=== PATIENT | female | born 1945 | race Caucasian/White ===

== ENCOUNTER 2025-02-17 13:42 | Outpatient (REF) | payer MEDICARE, SELFPAY ==
--- NOTE | ~2025-02-17 | XR_ITS ---
EXAMINATION: XR THORACIC SPINE CLINICAL INFORMATION: M54.6 - Pain in thoracic spine COMPARISON: None available. TECHNIQUE: 3 views of the thoracic spine were obtained. FINDINGS: S-shaped curvature of the thoracic spine. Multilevel marginal osteophyte formation and endplate sclerosis decreased intervertebral disc height, as indicated at T9-T10 and T8-9 levels. There is an electrode leads entering the the posterior central spinal canal probably at T10-11 level and ending at inferior endplate of T6.. No acute cortical disruption or gross malalignment. XR/XR thoracic spine 3V IMPRESSION: Scoliosis and multilevel spondylosis. Intraspinal canal neurostimulator device probably entering at T10-11 and ending inferior endplate of T6. Electronically signed by: Lowell Case MD 02/17/2025 03:18 PM EDT
--- NOTE | ~2025-02-17 | XR_ITS ---
EXAMINATION: XR CERVICAL SPINE CLINICAL INFORMATION: M47.812 - Spondylosis without myelopathy or radiculopathy, cervical region COMPARISON: None available. TECHNIQUE: 6 views of the cervical spine, inclusive of flexion and extension views, were obtained. FINDINGS: Craniocervical junction is intact. Marginal osteophyte formation and endplate sclerosis decreased intervertebral disc height at C5-6 and C6-7 levels and to a lesser extent C7-T1. Grade 1 anterolisthesis C3-4 in neutral position which reduces in extension position. No acute cortical disruption. No lytic or blastic lesions. XR/XR cervical spine w flex/ext IMPRESSION: Multilevel spondylosis C4 C7. Grade 1 anterolisthesis C3-4 with instability. Electronically signed by: Lowell Case MD 02/17/2025 03:20 PM EDT
== END 2025-02-17 13:43 | disposition home or self-care (01) ==
LOC: HO.XRAY 13:42
PROVIDERS: Visit Provider Registered Nurse Emergency
DX: M47.812 Spondylosis without myelopathy or radiculopathy, cervical region (principal); M54.6 Pain in thoracic spine; M79.652 Pain in left thigh; M79.651 Pain in right thigh; G89.4 Chronic pain syndrome
CPT/HCPCS: 72052; 72072; 99202

== ENCOUNTER 2025-02-17 13:42 | Outpatient (AMB) | payer MEDICARE, SELFPAY ==
--- NOTE | 2025-02-17 13:48 | MHC.OFFVIS ---
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 Her history includes chronic lumbar pain for 58 years caused by a twisting injury while lifting, partially alleviated by a spinal cord stimulator implanted less than a year ago. This intervention improved lower back pain but not upper back or thigh pain, which worsens from the afternoon to night. The referred thigh pain, which became significant after lumbar discomfort was addressed surgically, remains challenging to manage. Attempts to adjust the spinal stimulator were unsuccessful in fully addressing her symptoms. The patient does not recall recent cervical imaging or neck surgeries, denies recent attempts at physical therapy. Denies radiation of the pain down either arm. Denies weakness, numbness, tingling of either upper extremity. Currently takes buprenorphine/naloxone 2/0.5 mg with some improvement of her nighttime leg discomfort. She states no improvement with Tylenol, ibuprofen, heat, ice in the past. - Chronic lumbar pain: Onset 58 years ago; initially caused by twisting while lifting. Reduced post spinal stimulator implant. - Cervical and thoracic pain: Constant, described as significant. - Referred thigh pain: Initiates approximately at 5:00 PM, significantly worsens at night, extremely sore posterior thighs. - Worse postures: Sitting exacerbates pain - Tried adjustments: Spinal stimulator adjustments had incomplete effectiveness, impeded by mechanical limits. - Affect: Experiencing distress from chronic pain, impacting mood and functions, particularly troubling at night. - Analgesia: Currently using Suboxone, prior long-term morphine was effective before cessation. - Adverse Effects: No specific adverse effects noted from current medications. - Activities of Daily Living: Functionally impacted by pain at night, hindering comfort and activities. - Aberrant Drug Related Behaviors: None reported or discussed. [facility] Medical History (Updated 02/17/25 @ 15:56 by Michelle Rojas APRN, KEMI) Diabetes Stage 3 chronic kidney disease Hypothyroid Anemia Hypertension Hyperlipidemia Social History (Updated 02/17/25 @ 15:57 by Michelle Rojas APRN, TOP [employer]ER) Alcohol intake: current Alcohol intake frequency: holidays/special occasions only Patient Tobacco Use Status: Former Tobacco user Review of Systems Const Details: - Musculoskeletal: Reports chronic neck and lower back pain, pain between and below scapulae, referred pain to thighs. - Neurological: Denies radiating pain to upper extremities, denies headaches. Physical Exam Vital Signs: Last Vital Signs Pulse 75 02/17/25 13:49 BP 190/80 H 02/17/25 13:49 BMI result Body Mass Index 25.7 General: awake, alert, oriented. Answers questions appropriately. Fully engaged in examination. Skin: warm, dry, intact HEENT: Normocephalic. Hearing intact. Cardiac: External chest normal in appearance. Respiratory: No cough, audible wheezing or stridor. Abdomen: without gross distension. MS: No obvious swelling or deformities. Able to transition from sit to stand unassisted. Ambulates with bilaterally normal heel strike and toe off Cervical spine: Decreased range of motion. Tenderness over midline vertebrae and paraspinal muscles. Facet loading positive. Lumbar spine: SLR negative bilaterally. SCS implant in place right lower back. Bilateral lower extremity strength 5/5. The loading positive. Neurological: Oriented to person, place, time and situation. Thought process intact. No gait abnormalities appreciated. Psychiatric: Appropriate mood and affect. Good judgment and insight. Assessment & Plan Assessment & Plan (1) Chronic pain syndrome: Code(s): G89.4 - Chronic pain syndrome Category: Medical (2) Thoracic back pain: Code(s): M54.6 - Pain in thoracic spine Category: Medical (3) Cervical spondylosis: Code(s): M47.812 - Spondylosis without myelopathy or radiculopathy, cervical region Category: Medical Plan X-rays of the cervical and thoracic spine were ordered to evaluate any cervical or thoracic structural changes. I recommended physical therapy to assess for potential improvements in cervical and thoracic pain through targeted exercises, recognizing that the patient?s particular concern is referred thigh pain worsening at night. I advised the continuation of Suboxone treatment during this assessment phase. The patient is encouraged to establish regular care with a primary care provider who can manage ongoing medication requirements. If physical therapy does not relieve her symptoms, we will explore further invasive interventions, including diagnostic injections or temporary nerve stimulators. I discussed the potential causes of referred pain symptoms and the current management approach, including x-rays and physical therapy. I emphasized the importance of exploring non-invasive therapies before considering advanced interventions. We discussed maintaining Suboxone through pcp due to its current efficacy and history of use. The conversation covered the potential benefits and limitations of x-rays and how physical therapy might provide relief. I also explained why the stimulator adjustments thus far were not effective. The importance of a comprehensive follow-up with a primary care was stressed in light of upcoming procedural discussions. Patient was informed and verbally consented to the use of an ambient scribe for clinic note documentation during this visit. Orders: Orders XR thoracic spine 3V Today M54.6 - Pain in thoracic spine XR cervical spine w flex/ext Today M47.812 - Spondylosis without myelopathy or radiculopathy, cervical region Patient Instructions: - Schedule x-rays for your cervical and thoracic spine at the hospital. - Start physical therapy to assess potential pain relief from exercises. - Continue using Suboxone as currently prescribed. - Contact the recommended primary care providers to manage ongoing medication needs. - Follow up with me after physical therapy for further assessment. - Seek care immediately if pain becomes unmanageable or if there are significant changes in symptoms. Coding Level of Care Code New Pt Level 4 (53160) Complex EM visit Add On G2211 Diagnoses Chronic pain syndrome G89.4 Thoracic back pain M54.6 Cervical spondylosis M47.812
[2025-02-17 13:49] VITALS: BP 190/80; PULSE 75; BMI 25.7
== END 2025-02-17 14:31 | disposition home or self-care (01) ==
LOC: HO.PMC 13:45
PROVIDERS: Visit Provider Registered Nurse Emergency
DX: G89.4 Chronic pain syndrome (principal); M54.6 Pain in thoracic spine; M47.812 Spondylosis without myelopathy or radiculopathy, cervical region
CPT/HCPCS: 99204; G2211

== ENCOUNTER → 2025-02-17 14:48 | Outpatient (BNV) | payer MEDICARE, SELFPAY | PROVIDERS: Visit Provider Radiology Diagnostic Radiology | DX: M47.812 Spondylosis without myelopathy or radiculopathy, cervical region (principal); M41.04 Infantile idiopathic scoliosis, thoracic region; M47.14 Other spondylosis with myelopathy, thoracic region; Z96.82 Presence of neurostimulator | CPT/HCPCS: 72052; 72072 ==

== ENCOUNTER 2025-07-05 12:50 | Outpatient (REF) | payer MEDICARE, SELFPAY ==
--- NOTE | ~2025-07-05 | MM_ITS ---
EXAMINATION: DXA BONE DENSITY AXIAL HISTORY: SCREENING TECHNIQUE: Letsdecco Dual energy absorptiometry (DEXA) of the lumbar spine, total left hip, and femoral neck was performed. COMPARISON: There are no prior studies for comparison. FINDINGS: The bone mineral density of the lumbar spine is 0.879 g/cm2, corresponding to a T-score of -2.7, and a Z-score of -0.8. This is indicative of osteoporosis. The bone mineral density of the left total hip is 0.688 g/cm2, corresponding to a T-score of -2.5, and a Z-score of -0.6. This is indicative of osteoporosis. The bone mineral density of the left femoral neck is 0.638 g/cm2, corresponding to a T-score of -2.9, and a Z-score of -0.8. This is indicative of osteoporosis. MM/XR DEXA axial skeleton IMPRESSION: Based on bone mineral density, and according to World Health Organization (WHO) criteria, the diagnosis is consistent with osteoporosis. Statistically, 68% of repeat scans fall within 1 SD (+/- 0.010 g/cm2 for AP spine L1-L4) and 1 SD (+/- 0.012 g/cm2 for femur total) FRAX is a trademark of the [employer] [place] [facility] Met[employer] Disease, a World Health Organization (WHO) Collaborating Center. Electronically signed by: Scott Chaparro MD 07/06/2025 06:57 AM EDT
--- OUTSIDE RECORDS SUMMARY | 2025-07-05 15:13 | XMS_ITS | Clinical Summary ---
Author Organization [address] [facility] Address [address] [place] [address] Phone Care Team Providers Care Application Support Intern Name Role Phone Trina Hutchison MD Primary Care Provider [phone] Allergies No known active allergies Surgical History Surgery Date Site/Laterality Comments CATARACT EXTRACTION INTRAOCULAR LENS EXCHANGE Medical History Medical History Date Comments Diabetes (CMS/HCC V24, CMS/HCC V28) Hypothyroidism, adult Anemia Hypertension Hyperlipidemia Family History Medical History Relation Name Comments Diabetes Father Hyperlipidemia Father Macular degeneration Mother Cancer Sister Relation Name Status Comments Father Mother Sister Social History Tobacco Use Types Packs/Day Years Used Date Smoking Tobacco: Former Cigarettes Smokeless Tobacco: Never Tobacco Cessation:Counseling Given: Not Answered Comments Unknown Sex and Gender Information Value Date Recorded Sex Assigned at Not on file Legal Sex Female 9:02 AM EDT Gender Identity Not on file Sexual Orientation Not on file Obstetrics History Plan of Treatment Health Maintenance Due Date Last Done Comments DTaP,Tdap,and Td Vaccines (1 - Tdap) 1965 Pneumococcal Vaccine: 50+ Ye ars (1 of 1 - PCV) 1996 Zoster Vaccines (1 of 2) 1996 RSV Immunization Adult Patie nts (1 - 1-dose 75+ series) 2021 Depression Screening 09/30/2024 Falls Risk Assessment 02/10/2025 Hepatitis C Screening 02/10/2025 Medicare Annual Wellness Visit 02/10/2025 Osteoporosis Screening (Bone Density Screening) 02/10/2025 Social Influencers of Health Screening 02/10/2025 COVID-19 Vaccine (1 - 2023-2 5 season) 2025 Influenza Vaccine (#1) 2025 HIB Vaccines Aged Out No longer eligi ble based on patient's age to complete this topic HPV Vaccines Aged Out No longer eligi ble based on patient's age to complete this topic Hepatitis A Vaccines Aged Out No long er eligible based on patient's age to complete this topic Hepatitis B Vaccines Aged Out No long er eligible based on patient's age to complete this topic IPV Vaccines Aged Out No longer eligi ble based on patient's age to complete this topic MMR Vaccines Aged Out No longer eligi ble based on patient's age to complete this topic Meningococcal ACWY Vaccine Aged Out N o longer eligible based on patient's age to complete this topic Meningococcal B Vaccine Aged Out No l onger eligible based on patient's age to complete this topic RSV Immunization Patients Un jakob 20 months Aged Out No longer eligible b ased on patient's age to complete this topic Varicella Vaccines Aged Out No longer eligible based on patient's age to complete this topic Insurance [employer] MEDICARE [employer] MEDICARE Care Teams Application Support Intern Relationship Specialty Start Date End Date Trina Hutchison MD [address] [place] [phone] PCP - General Family Medicine 02/10/25
--- OUTSIDE RECORDS SUMMARY | 2025-07-05 15:13 | XMS_ITS | Patient Health Record ---
Author Organization [facility] Address [address] [place] [address] Care Team Providers Care Senior Outside Sales Representative Name Role Phone Trina Hutchison Primary Care Provider Sheree Ulrich MD MSc, Christina Unavailable [phone] Allergies Allergen (clinical drug ingredient) Drug/Non Drug Allergy documented on EMR Reaction Allergy Type Onset Date Status Bee Sting Unknown Allergy Active isopropyl alcohol Isopropyl Alcohol Unknown Drug Allergy Active Latex Latex Unknown Allergy Active [place] Fumes Unknown Allergy Active Pollen Pollen Unknown Allergy Active Reason For Referral No Information Medications Medication SIG (Take, Route, Frequency, Duration) Notes Start Date End Date Status Morphine Sulfate 30 MG 1 tablet as neede d Orally every 4 hrs Current dose, Morphine ER 30mg BID. Active buPROPion HCl 100 MG as directed Orally 150mg, TID Active Levothyroxine Sodium 50 MCG 1 tablet in the morning on an empty stomach Orally Once a day; Duration: 30 day(s) Active Albuterol Sulfate - as directed Active Repaglinide 2 MG 1 tablet 15 to 30 minutes before meals Orally 3 tabs, Twice a day Active metFORMIN HCl 850 MG as directed Orally 750mg AM, 750mg in the evening and 500mg at bed time Active CeleXA 20 MG 1 tablet Orally Once a day; Duration: 30 day(s) Active Fluticasone Propionate 0.05 % 1 application Externally Once a day; Duration: 14 day(s) Active EpiPen Active Diflucan 50 MG 2 tablets Orally as needed Active Montelukast Sodium 10 MG 1 tablet Orally Once a day; Duration: 30 day(s) Active Social History Alcohol screen Question Answer Notes Did you have a drink containing alcohol in the p ast year? Yes How often did you have a dri nk containing alcohol in the past year? Monthly or less How many drinks did you have on a typical day when you were drinking in the past year? 1 or 2 How often did you have six o r more drinks on one occasion in the past year? 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 Plan Of Treatment No Information Insurance Providers Payer Name Payer Address Payer Phone Subscriber Number Group Number Insured Name Patient Relationship to Insured Coverage Start Date Coverage End Date [employer] Medicare UHC [address] [place] [phone] [id number] Lori Nevarez Self - patient is the insured MEDICARE [employer] [address] [place] [phone] [id number] Lori Nevarez Self - patient is the insured Medical (General) History Medical History History ICD Code fibromyalgia, bone small milady l cancer, ectopic preganancy, asthma, T2DM, hypothyroid, hypermobile ligaments, Mando-Danlos syndrome Surgical History Surgery Date(Month/Year) ectopic 30 years ago Right knee surgeries
== END 2025-07-05 12:51 | disposition home or self-care (01) ==
LOC: HO.MAMMO 12:50
PROVIDERS: PCP Physician Assistant; Visit Provider Physician Assistant
DX: M81.0 Age-related osteoporosis without current pathological fracture (principal)
CPT/HCPCS: 77080

== ENCOUNTER → 2025-07-05 13:00 | Outpatient (BNV) | payer MEDICARE, SELFPAY | PROVIDERS: PCP Physician Assistant; Visit Provider Radiology Diagnostic Radiology | DX: E28.39 Other primary ovarian failure (principal) | CPT/HCPCS: 77080 ==

== ENCOUNTER → 2025-09-13 16:21 | Outpatient (BNV) | payer MEDICARE, SELFPAY | PROVIDERS: PCP Physician Assistant; Visit Provider Radiology Diagnostic Radiology | DX: M47.812 Spondylosis without myelopathy or radiculopathy, cervical region (principal); M48.02 Spinal stenosis, cervical region | CPT/HCPCS: 72141 ==

== ENCOUNTER 2025-09-13 16:30 | Outpatient (REF) | payer MEDICARE, SELFPAY ==
--- NOTE | ~2025-09-13 | MR_ITS ---
EXAMINATION: MR CERVICAL SPINE WITHOUT CONTRAST CLINICAL INFORMATION: M47.812. Spondylosis without myelopathy or radiculopathy, cervical region. COMPARISON: Correlated to x-ray dated February 17, 2025. TECHNIQUE: MRI of the cervical spine was obtained using routine sequences without contrast. FINDINGS: Craniocervical junction is intact. Normal position of the cerebellar tonsils. Hyperintense T2 STIR signal within the jacinta. Focal hyperintense T2 STIR signal within the cervical spinal cord at C5-6 level. No bone marrow STIR signal abnormality. Multilevel marginal osteophyte formation and disc desiccation decreased intervertebral disc height and endplate irregularity at C4-5, C5-6 and to a lesser extent C6-7. Grade 1 retrolisthesis C4-5 and C5-6 level. Grade 1 anterolisthesis, C3-4 and C7-T1 levels. Buckling deformity of the dorsal aspect of the thecal sac secondary to ligamentum flavum hypertrophy at C4-5, C5-6 and C6-7 levels. C2-3: Broad-based disc osteophyte compresses formation. No cord compression. No neuroforamina stenosis. C3-4: Broad-based disc osteophyte compresses formation. No central spinal canal stenosis. Right neuroforamina narrowing on a degenerative basis. C4-5: Broad-based disc osteophyte complex formation resulting in ventral deformity of the thecal sac. Bilateral neuroforamina stenosis on a degenerative basis. C5-6: Broad-based disc osteophyte compresses formation resulting in flattening of the spinal cord and CSF effacement of the thecal sac. There is hypertrophy of ligamentum flavum. Hyperintense T2 signal within the right and left midline of the dorsal cervical spinal cord. Bilateral neuroforamina stenosis on a degenerative basis. C6-7: Broad-based disc osteophyte consummation resulting in ventral deformity of the thecal sac. Bilateral neuroforamina stenosis. C7-T1: Broad-based disc osteophyte compresses formation. No cord compression. No neuroforamina stenosis. No prevertebral compartment hematoma, mass or fluid collection. Flow-void signal within the main vessels is normal. Left vertebral artery is dominant. 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 Multilevel central spinal canal and bilateral neuroforamina stenosis pronounced at C4-5, C5-6 and to a lesser extent C6-7 and C3-4 levels. Electronically signed by: Lowell Case MD 09/14/2025 07:02 AM HAR[facility]
== END 2025-09-13 16:31 | disposition home or self-care (01) ==
LOC: HO.MRI 16:30
PROVIDERS: PCP Physician Assistant; Visit Provider Registered Nurse Emergency
DX: M47.812 Spondylosis without myelopathy or radiculopathy, cervical region (principal); M43.12 Spondylolisthesis, cervical region
CPT/HCPCS: 72141